=== PATIENT | male | born 1985 | race Caucasian/White ===

== ENCOUNTER 2023-12-05 19:06 | Emergency (ER) | payer OTHER, SELFPAY ==
[2023-12-05 19:28] VITALS: BP 157/95; PULSE 75; RESP 16; TEMP 36.6; O2SAT 96; BMI 28.9
--- NOTE | 2023-12-05 20:28 | ED_ITS ---
HPI - General Adult General Chief complaint: Wound/Laceration Stated complaint: left finger laceration Time Seen by Provider: 12/05/23 20:15 Source: patient and RN notes reviewed Mode of arrival: ambulatory Limitations: no limitations History of Present Illness HPI narrative: 37-year-old male presents for evaluation of a laceration to his left 4th finger. 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 Bleeding controlled His last tetanus was about 1 year ago Related Data Allergies Allergy/AdvReac Type Severity Reaction Status Date / Time [employer] Allergy Mild MOUTH Uncoded 12/05/23 19:33 [place] Review of Systems Integumentary/Breasts: Skin/Breast: Reports wounds PMFSH Social History Social History Advance Directives: No Advance Directives Information Provided: No Physical Exam ED Vital Signs: Vital Signs - 24 hr 12/05/23 19:28 Temperature 97.9 F Pulse Rate 75 Respiratory Rate 16 Blood Pressure 157/95 H Pulse Oximetry 96 Oxygen Delivery Method Room Air BMI result Body Mass Index 28.9 Const General: healthy appearing, comfortable, no acute distress, alert and awake Nutritional Appearance: well nourished Orientation/consciousness: patient oriented x3 HENMT Head: Yes normocephalic and Yes atraumatic Eyes Eyelids: Yes eyelids normal Conjunctivae: conjunctivae normal Sclerae: sclerae normal Corneas: corneas normal Pupils: Equal, round and reactive pupils present EOM: EOMs intact bilaterally Neck Neck: Yes full ROM Resp Effort & Inspection: normal respiratory effort, able to speak in complete sentences and not labored Skin Other: Patient has a very small/superficial avulsion injury to the left 4th fingertip. In his approximately 1 cm length half a cm. It involves the very edge of the nail plate. Patient has full range of motion flexion-extension of left 4th finger at the MCP PIP and DP joints General skin exam: elasticity normal Neuro General: patient oriented x3 Cranial nerves: Yes Equal, round and reactive pupils present and Yes Bilaterally intact EOM present Cognition (Neuro): normal cognition Extrem Other: Moving all extremities well without any obvious deformities Medical Decision Making Medical Decision Making MDM Narrative: Patient has an avulsion injury, there is no active bleeding. There is no laceration requiring sutures. Patient was given wound care instructions. The wound was cleaned irrigated with saline and Betadine Differential Diagnosis Differential Diagnoses: The differential diagnosis associated with the presentation includes Laceration Avulsion injury Abrasion Skin tear Discharge Plan Discharge Clinical Impression: Finger laceration Patient Disposition: Home, Self-Care Instructions: Finger Laceration (ED) Additional Instructions: You have what is called an avulsion laceration. You cut off a very small portion of your finger Keep the area clean and dry You may apply topical antibiotic every other day Return for new or worsening symptoms Follow-up with your primary doctor
[2023-12-05 20:36] VITALS: BP 140/89; PULSE 82; RESP 20; TEMP 36.6; O2SAT 98
== END 2023-12-05 20:43 | disposition home or self-care (01) ==
PROVIDERS: Emergency Provider Emergency Medicine
DX: S61.215A Laceration without foreign body of left ring finger without damage to nail, initial encounter (principal); W26.9XXA Contact with unspecified sharp object(s), initial encounter; Y93.9 Activity, unspecified; Y92.9 Unspecified place or not applicable; Y99.9 Unspecified external cause status
CPT/HCPCS: 99282